=== PATIENT | female | born 2000 | race African-American/Black ===

== ENCOUNTER 2021-07-29 18:38 | Emergency (ER) | payer MEDICAID ==
[~2021-07-29] VITALS: Ht 175.3 cm; Wt 72.0 kg
[2021-07-29] MEDS ORDERED: IBUPROFEN 600MG TABLET PO STA (18:56)
[2021-07-29] MEDS ORDERED: LIDOCAINE HCL/EPINEPHRINE 1%-EPI 1:100,000 20 ML VIAL INFIL ONE (19:00)
[2021-07-29 19:31] LABS: BASOPHILS % 0.2 % (0.0-2.0); EOSINOPHILS % 0.1 % (0.0-5.0); LYMPHOCYTES % 16.4 % (20.0-50.0); MEAN CORPUSCULAR HEMOGLOBIN 27.5 pg (28.0-32.0); MEAN CORPUSCULAR VOLUME 84.8 fL (81.0-99.0); MEAN PLATELET VOLUME 8.3 fl (7.4-10.4); MONOCYTES % 7.1 % (2.0-8.0); NEUTROPHILS % 76.2 % (40.0-76.0); PLATELET 259 x1000/uL (130-400); RED BLOOD CELL COUNT 4.72 mill/uL (4.2-5.4); RED CELL DISTRIBUTION WIDTH 13.4 % (11.6-14.6)
[2021-07-29 19:38] LABS: CHLORIDE 107 mEq/L (98-107)
[2021-07-29 19:41] LABS: INR 1.2; PROTHROMBIN TIME 12.4 sec (9.6-11.0)
[2021-07-29 19:48] LABS: HCG SCREEN NEGATIVE
[2021-07-29] MEDS ORDERED: SODIUM CHLORIDE 0.9% 1,000 ML IV ONE (20:30)
[2021-07-29 22:30] VITALS: BP 112/58
[2021-07-29] MEDS ORDERED: ACETAMINOPHEN 325MG TABLET PO ONE (22:30)
== END 2021-07-29 22:35 | disposition home or self-care (01) ==
LOC: ER 18:38
DX: S01.81XA Laceration without foreign body of other part of head, initial encounter (principal); S71.111A Laceration without foreign body, right thigh, initial encounter; Y08.89XA Assault by other specified means, initial encounter; Y93.89 Activity, other specified; Y92.89 Other specified places as the place of occurrence of the external cause; Y99.8 Other external cause status
CPT/HCPCS: 12001; 12011; 36415; 70450; 70486; 74177; 80053; 84703; 85025; 85610; 96360; 96361; 99285; A4217; J3490; J7030; Z7610